=== PATIENT | female | born 1970 | race Caucasian/White ===

== ENCOUNTER → 2016-03-04 | Outpatient (CLI) | payer BC ==
[~2016-03-04] MED LIST: HYDROCODON-ACE1 EAC7 PO; NORCO 5-325 TA1 EACH PO; VITAMIN D1000 UNI1 PO
== END ==
LOC: CAT 10:24 → RAD 10:24
DX: M47.814 Spondylosis without myelopathy or radiculopathy, thoracic region (principal); M54.6 Pain in thoracic spine; J32.9 Chronic sinusitis, unspecified; R51 Headache

== ENCOUNTER → 2017-01-19 | Outpatient (CLI) | payer BC, OTHER | LOC: ULTRA 12:55 | DX: M79.604 Pain in right leg (principal); M79.89 Other specified soft tissue disorders ==

== ENCOUNTER → 2017-01-27 | Outpatient (CLI) | payer BC, OTHER | LOC: HYPER 06:45 | DX: T81.89XD Other complications of procedures, not elsewhere classified, subsequent encounter (principal); Z72.89 Other problems related to lifestyle; Y83.8 Other surgical procedures as the cause of abnormal reaction of the patient, or of later complication, without mention of misadventure at the time of the procedure ==

== ENCOUNTER → 2017-02-09 | Outpatient (CLI) | payer BC, OTHER | LOC: HYPER 07:10 | DX: T81.89XD Other complications of procedures, not elsewhere classified, subsequent encounter (principal); Z72.89 Other problems related to lifestyle; Y83.8 Other surgical procedures as the cause of abnormal reaction of the patient, or of later complication, without mention of misadventure at the time of the procedure ==

== ENCOUNTER → 2017-02-24 | Outpatient (CLI) | payer BC, OTHER ==
[~2017-02-24] MED LIST changes: +ASPIR 8181 MG PO; +CRESTOR10 MG PO; +DEPO-PROVE150 MG/11 IM; +IBUPROFEN 200200 M1 PO; +IMDUR 30 MG TAB30 M1 PO; +NITROGLYCERIN0.4 MG SUBLING; +PROTONIX40 M1 PO; +RIZATRIPTAN5 M1 PO; +TOPROL XL25 MG PO; +VITAMIN D5000 UNIT PO; +ZOLOFT50 MG PO
== END ==
LOC: HYPER 06:37
DX: T81.89XD Other complications of procedures, not elsewhere classified, subsequent encounter (principal); S80.811D Abrasion, right lower leg, subsequent encounter; Z72.89 Other problems related to lifestyle; X58.XXXD Exposure to other specified factors, subsequent encounter; Y83.8 Other surgical procedures as the cause of abnormal reaction of the patient, or of later complication, without mention of misadventure at the time of the procedure

== ENCOUNTER 2017-11-17 07:54 | Observation (INO) | payer BC, OTHER ==
[~2017-11-17] VITALS: Ht 162.6 cm; Wt 104.0 kg
--- NOTE | ~2017-11-17 | EKG ---
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 BERMEO : 1970 Requested By: Carlos Nicole Order Number: [id number] MD: Triston Flores Measurements Intervals [place] Rate: 68 P: 11 IN: 181 QRS: 28 QRSD: 91 T: 33 QT: 445 QTc: 474 Interpretive Statements Sinus rhythm ST elev, probable normal early repol pattern No previous ECG available for comparison Electronically Signed On 11-17-2017 17:16:53 CDT by Triston Flores [email or web address] <ELECTRONICALLY SIGNED> By: Triston Flores MD, [facility] 11/17/17 1716 1128 112 Triston Flores MD, [facility] /EPI
--- NOTE | ~2017-11-17 | CATHLAB ---
[facility] [address] [place] [address] INVASIVE PROCEDURE REPORT Name: LIZAELLIOTTCAIN Room #: 214-[facility]#: [id number] Admission: 11/17/17 Attend Phys: Carlos William Discharge: 11/18/17 Date of : 72 Date of Service: 11/18/17 1227 Report #: [id number] THIS REPORT FOR: //name// APPROVED REPORT Study performed: 11/17/2017 09:29:26 Patient Details Patient Status: Out-Patient Room #: The patient is a 47 year-old female Event Personnel Carlos Nicole Superintendent [employer], Tae Lezama Brown, Roberta Monitor, Amilcar Lynch RN Procedures Performed Art Access - R femoral artery* Left Heart Cath w/or w/o Coronaries [id number] [facility] 15794 Initial Mod Sed Same Phys/QHP Gr5y 560640 36460 Mod Sed Same Phys/QHP Ea 020701 Hemostasis w/ Mynx supervision of conscious sedation Indication Positive stress test, Chest pain Procedure Narrative The Right Groin^ was infiltrated with 1% Lidocaine subcutaneous anesthesia. A PINNACLE 4FR Sheath #[id number] sheath was inserted into the RFA^. Coronary angiography was performed using coronary diagnostic catheters. The right coronary system was accessed and visualized with a JR4 catheter. The left coronary system was accessed and visualized with a JL4 catheter. The left ventricle was accessed and visualized with a angled Pigtail catheter. Left ventricular/Aortic Valve gradient assessed via catheter pullback. Closure device was deployed with a 6 Fr MYNXGRIP 6/7F #[id number]. There was no hematoma. Intraoperative Conscious Sedation Sedation start time: 09:45 Case end Time: 11:00 Versed 4 mg Fluoro Time: 2585.00 minutes Dose: DAP 97459.80 cGycm2 2585 mGy Contrast Type and Amount: Omnipaque 125 ml [facility] [place] [address] INVASIVE PROCEDURE REPORT Name: CAIN VARNER Room #: 214-P [facility].#: [id number] Admission: 11/17/17 Attend Phys: Carlos William Discharge: 11/18/17 Date of : 72 Date of Service: 11/18/17 1227 Report #: [id number] Coronary Angiography The patient's coronary anatomy is right dominant. Diagnostic Cath Left Main Left main is of normal origin bifurcates left anterior descending left circumflex free of high-grade disease LAD Moderate caliber vessel which rapidly tapers to the apex is a type II vessel. No high-grade lesions are noted but the apex does taper dramatically and has luminal irregularities present Diagonal 1 Small-caliber vessel without significant obstructive lesions noted Circumflex Moderate caliber vessel which is quite tortuous proximally has a long segment of 50% stenosis with what may be slightly higher narrowing in its distal portion prior to continuation of the circumflex marginal branch. The circumflex proper then obtain as posteriorly as small-caliber vessel OM1 Moderate caliber vessel quite tortuous in nature with a moderate caliber lesion in this midportion. Right Coronary Large-caliber vessel normal origin proceeds in the AV groove giving rise to RV marginal branches and continues giving rise to posterior descending artery large posterior circulation which extends from the inferolateral wall to the apex as well as the apex R PDA Moderate caliber vessel without significant high-grade lesion Left Ventriculography Left Ventriculography was not performed. Hemodynamics The aortic pressure is 153/93 mmHg with a mean of 120 mmHg. The left ventricular pressure is 123/13 mmHg with a mean of mmHg. The left ventricular end diastolic pressure is 25 mmHg. PCI Technique Due to the moderate nature of the lesion and the absence of reversibility on perfusion scanning FFR was attempted. The wire was unable to be advanced to be on the distal portion of the long lesion and a 014 wire was then advanced. A 1.5 mm balloon was then placed distally and attempted advancement of the FFR wire failed to be successful. Wire control was then lost and a whisper wire was then attempted which was taken distally in the marginal branch. The lesion appeared to be somewhat hazy and it was decided to proceed with attempted stenting to see whether the device was able to navigate the 90 turns that are noted. This was unsuccessful even with the use of a whisper wire the patient chest discomfort occurred initially with the first injection of the catheterization resolved and she had [facility] [address] [place] [address] INVASIVE PROCEDURE REPORT Name: CAIN VARNER Room #: 214-P [facility].R.#: [id number] Admission: 11/17/17 Attend Phys: Carlos William Discharge: 11/18/17 Date of : 72 Date of Service: 11/18/177 Report #: [id number] recurrent symptoms but no ST segment changes that had been on the first episode. Small linear dissection that it did not appear to be flow-limiting or thrombus formation was noted. At this point in time the procedure was discontinued and at discussion for medical management was appropriate due to the tortuosity of the vessel itself. A remained hemodynamically and electrically stable throughout the case PCI Technique Lesion A LAUNCHER 6FR JL4 #[id number] Guide Catheter was used to engage the ostium. A Luge Wire (J) .014 X 182CM #[id number] Interventional Guidewire was used to cross the lesion. COMMENTS Aeris Pressure wire 175cm unable to cross lesion. 2.5mm x 22mm Resolute [place] OTW unable to cross lesion Conclusion 1. Coronary disease single vessel involving a month at least moderate mid circumflex lesion in a tortuous vessel 2. Abnormal with absent elevated left ventricle end-diastolic pressures 3. Development of chest discomfort and ST segment elevations with the first injection without evidence of any flow restriction which resolved with one sublingual nitroglycerin Recommendations Cardiac Risk Reduction Program Aggressive Medical Therapy Medications Administered Angiomax infusion and bolus <ELECTRONICALLY SIGNED> By: Carlos Nicole MD 11/18/17 1227 26 Carlos Nicole MD /INF
[~2017-11-17 07:54] MED LIST changes: -ASPIR 8181 MG PO; -CRESTOR10 MG PO; -DEPO-PROVE150 MG/11 IM; -IMDUR 30 MG TAB30 M1 PO; -NITROGLYCERIN0.4 MG SUBLING; -PROTONIX40 M1 PO; -RIZATRIPTAN5 M1 PO; -TOPROL XL25 MG PO; -VITAMIN D5000 UNIT PO
[2017-11-17 08:26] VITALS: BP 128/85
[2017-11-17] MEDS ORDERED: RIZATRIPTAN5 M1 PO (08:38)
[2017-11-17] MEDS ORDERED: DEPO-PROVE150 MG/11 IM (08:39)
[2017-11-17] MEDS ORDERED: VITAMIN D5000 UNIT PO (08:40)
[2017-11-17 12:15] VITALS: BP 143/93
[2017-11-17 16:30] VITALS: BP 115/73
[2017-11-17 19:53] VITALS: BP 111/69
[2017-11-18 00:16] VITALS: BP 117/77
[2017-11-18 03:36] VITALS: BP 121/75
[2017-11-18 03:48] LABS: HEMATOCRIT 40.6 % (37.0-47.0); HEMOGLOBIN 13.8 gm/dL (12.0-15.0); MCH 31.2 pg (26.0-34.0); MCV 91.8 fL (80.0-100.0); RBC 4.42 mil/uL (4.20-5.00); RDW 13.7 % (10.5-14.5)
[2017-11-18 03:55] LABS: CALCIUM 8.8 mg/dL (8.5-10.1); CREATININE 0.8 mg/dL (0.6-1.0); POTASSIUM 3.7 mmol/L (3.5-5.1)
[2017-11-18 07:59] VITALS: BP 123/83
[2017-11-18] MEDS ORDERED: ASPIR 8181 MG PO (09:18)
[2017-11-18] MEDS ORDERED: IMDUR 30 MG TAB30 M1 PO (09:18)
[2017-11-18] MEDS ORDERED: TOPROL XL25 MG PO (09:18)
[2017-11-18] MEDS ORDERED: PROTONIX40 M1 PO (09:18)
[2017-11-18] MEDS ORDERED: NITROGLYCERIN0.4 MG SUBLING (09:18)
[2017-11-18] MEDS ORDERED: CRESTOR10 MG PO (09:24)
[2017-11-18 10:20] VITALS: BP 123/83
== END 2017-11-18 10:58 | disposition home or self-care (01) ==
LOC: CATH 07:54 → 2N 10:44 → CATH 14:16 → 2N 11-18 10:58
PROVIDERS: Internal Medicine
DX: R07.9 Chest pain, unspecified (principal); R91.8 Other nonspecific abnormal finding of lung field; E78.5 Hyperlipidemia, unspecified; Z98.890 Other specified postprocedural states; Z90.49 Acquired absence of other specified parts of digestive tract; Z72.89 Other problems related to lifestyle

== ENCOUNTER → 2018-02-01 | Outpatient (CLI) | payer BC, OTHER ==
[~2018-02-01] MED LIST changes: +ASPIR 8181 MG PO; +CRESTOR10 MG PO; +DEPO-PROVE150 MG/11 IM; +IMDUR 30 MG TAB30 M1 PO; +NITROGLYCERIN0.4 MG SUBLING; +PROTONIX40 M1 PO; +RIZATRIPTAN5 M1 PO; +TOPROL XL25 MG PO; +VITAMIN D5000 UNIT PO
--- NOTE | ~2018-02-01 | HPC ---
[facility] [place] [address] PAIN MANAGEMENT CONSULTATION Name: CAIN VARNER Pavel [facility] [id number] Admission: 02/01/18 Attend Phys: Paramjit Flores DO Discharge: Date of : 72 Report #: [id number] THIS REPORT FOR: //name// CC: Paramjit Oswald MD DATE OF SERVICE: 02/01/2018 CHIEF COMPLAINT: Right low back pain. HISTORY OF PRESENT ILLNESS: As you know, the patient is a morbidly obese 47-year-old female with longstanding history of right chest wall pain for which the patient was referred to our clinic. She stated her pain began a month ago and progressively worsened. She has returned today in followup visit with now complaint of right low back and no chest wall pain. She is placing pain directly over her right lower back area, is not involved in the facet area. She is placing pain score 4/10. She denies injury or trauma to the area that might have caused symptom development. She returns today to discuss her concerns of this one specific area of pain directly above the iliac crest on the right side. ALLERGIES: No known drug allergies. CURRENT MEDICATIONS: Rizatriptan, Depo-Provera, cholecalciferol, metoprolol, isosorbide dinitrate, nitroglycerin, aspirin, pantoprazole, and lovastatin. SOCIAL HISTORY: The patient denies tobacco, alcohol, IV or illicit drug use. She is unaccompanied today. IMAGING: No new imaging available. PHYSICAL EXAMINATION: VITAL SIGNS: Blood pressure 140/85, pulse 78, respiratory rate 18 and unlabored. The patient is 96% on room air. Height 5 feet tall, weight 230 pounds, BMI calculated 39.5. GENERAL: Well-developed, well-nourished, well-hydrated, class 2, morbidly obese 47-year-old female, appearing stated age, placing current pain score at approximately 4/10. HEENT: Normocephalic, atraumatic. Pupils equal, round, reactive to light. EXTREMITIES: Show no clubbing, no cyanosis, no edema. MUSCULOSKELETAL: There is one discrete trigger point noted over the top of the iliac crest on the right. This is not underlined by any facet joints or osseous structures. Deep palpation of the area causes intensification of pain. ASSESSMENT: 1. Myofascial pain. [address] [address] PAIN MANAGEMENT CONSULTATION Name: CAIN VARNER Pavel [id number] Admission: 02/01/18 Attend Phys: Paramjit Flores DO Discharge: Date of : 72 Report #: [id number] 2. Right low back pain. PLAN: 1. The patient has returned today in followup visit, denying any chest wall pain at today's visit. She is easily locating pain directly over the iliac crest on the right side. This is located approximately 7-8 cm lateral to the spinous process at L4 and L5, pain is not overlying an osseous structure. This appears to be myofascial in origin. Deep palpation of the area causes patient's typical pain. She returns today to address this issue. After reviewing the risks and benefits of treatment options for trigger points, the patient chose to undergo trigger point injection in hopes of improving pain. She did not wish to be involved in physical therapy, stretching exercises, core strengthening and concerted effort at weight loss. She has been consented to undergo the trigger point injection today. She has been advised the risks and benefits, states she understood and wished to proceed. 2. No medication changes made at today's visit. The patient will continue current medical therapy as prior prescribed. 3. We will see the patient back in followup visit on an as needed basis. At discharge today, the patient's pain went from 4/10 to 0/10. By: 1612 38 Paramjit Flores, /nt
--- NOTE | ~2018-02-01 | P ---
[facility] [place] [address] [place] [address] PROCEDURE REPORT Name: ILZAELLIOTTCAIN [facility] [id number] Admission: 02/01/18 Attend Phys: Paramjit Flores DO Discharge: Date of : 72 Report #: [id number] THIS REPORT FOR: //name// CC: Paramjit Oswald MD DATE OF SERVICE: 02/01/2018 PROCEDURE: Trigger point injection. DESCRIPTION OF PROCEDURE: After obtaining written consent, the patient was placed in a seated position. By palpating using a single finger, one specific trigger point was identified in the paraspinal musculature of the right low back. The area was then marked with a skin marker. The area was then prepped with chlorhexidine. The area overlying the injection site was then anesthetized with 1 mL of 1% lidocaine using a 27-gauge 1-1/4-inch needle. A 25-gauge 2-inch needle was then advanced towards the trigger point. The needle was advanced until causing the patient's typical radiating pain pattern. After negative aspiration for heme, 4 mL of a solution containing 1 mL 40 mg per mL, 40 mg total triamcinolone and 3 mL bupivacaine 0.5% injected slowly. Needle was retracted alf, flushed with 1 mL of 1% lidocaine and removed. The patient was able to move all 4 extremities after procedure. The patient tolerated procedure well, carefully escorted to the recovery room in stable condition. No apparent complications. After meeting discharge criteria, the patient was discharged home with pain level 0/10 reduced from 4/10. By: 1612 [id number] Paramjit Flores DO /nt
[2018-02-01 09:44] VITALS: BP 140/85
== END | disposition home or self-care (01) ==
LOC: PAIN 09:21
DX: M79.18 Myalgia, other site (principal); M54.5 Low back pain; E66.01 Morbid (severe) obesity due to excess calories; Z79.899 Other long term (current) drug therapy; Z79.82 Long term (current) use of aspirin; Z68.39 Body mass index [BMI] 39.0-39.9, adult

== ENCOUNTER → 2018-03-10 | Outpatient (CLI) | payer BC, OTHER | LOC: ULTRA 16:05 | DX: E04.1 Nontoxic single thyroid nodule (principal) ==

== ENCOUNTER → 2018-09-13 | Outpatient (CLI) | payer BC, OTHER ==
[~2018-09-13] VITALS: Ht 162.6 cm; Wt 106.3 kg
[~2018-09-13] MED LIST changes: +BYSTOLIC 5 MG5 M1 PO
--- NOTE | ~2018-09-13 | HPC ---
[facility] [place] [address] [place] [address] PAIN MANAGEMENT CONSULTATION Name: CAIN VARNER [facility] [id number] Admission: 09/13/18 ������������������ Attend Phys: Paramjit Flores DO Discharge: ������������������ Date of : 72 Report #: [id number] THIS REPORT FOR: //name// CC: Paramjit Oswald MD DATE OF SERVICE: 09/13/2018 CHIEF COMPLAINT: Myofascial pain located over the right low back. HISTORY OF PRESENT ILLNESS: As you know, the patient is a morbidly obese 48-year-old female with longstanding history of right low back pain, diagnosed as myofascial pain. She underwent trigger point injections at our visit of 02/01/2018 with good and prolonged benefit. She returns today in followup visit reporting pain score 3/10. She reports greater than 70% improvement in overall pain with those injections until just recently where her symptoms began to return. She returns today requesting next in the series of trigger point injections to address recurrent myofascial symptoms. She denies injury or trauma that may have led to symptom reoccurrence. ALLERGIES: No known drug allergies. CURRENT MEDICATIONS, Bystolic 5 mg once a day, rosuvastatin 10 mg per day, aspirin 81 mg per day, Depo-Provera 150 mg intramuscular per month. SOCIAL HISTORY: The patient denies tobacco. Denies IV or illicit drug use. Admits to an occasional alcohol beverage. She is unaccompanied at today's visit. IMAGING: There is no new imaging available. PHYSICAL EXAMINATION: VITAL SIGNS: Blood pressure 152/98, pulse 54, respiratory rate 16 and unlabored. The patient is 97% on room air. Height 5 feet 4 inches tall, weight 234.4 pounds, BMI calculated 40.2. GENERAL: Well-developed, well-nourished, well-hydrated, class 3 morbidly obese, 48-year-old female, appearing stated age. Pain is rated today at 3/10. HEENT: Normocephalic, atraumatic. Pupils equal, round, reactive to light. Extraocular muscles are intact. EXTREMITIES: Show no clubbing, no cyanosis, no edema. ABDOMEN: Soft, nontender, gibbous in its formation. MUSCULOSKELETAL: There are multiple discrete trigger points identified within the lumbar region, 8 different trigger points were identified. Multiple tender points. [address] [address] PAIN MANAGEMENT CONSULTATION Name: CAIN VARNER Room #: REG [facility]#: [id number] Admission: 09/13/18 ������������������ Attend Phys: Paramjit Flores DO Discharge: ������������������ Date of : 72 Report #: [id number] ASSESSMENT: 1. Myofascial pain. 2. Chronic right low back pain. PLAN: 1. The patient returns today in followup visit having noted excellent benefit 70% improvement by patient's report with trigger point injections provided in January. Unfortunately, her symptoms have begun to return without inciting injury or trauma. She returns today per the request of her PCP to undergo next in the series of trigger point injections. She denies any changes in medical history since our last visit. She continues on her typical medications. The patient was advised risks and benefits of a trigger point injection series. These risks include but are not necessarily limited to bleeding, bruising, infection, worsening of pain, no relief of pain, temporary or permanent muscle weakness, temporary or permanent nerve damage, possible pneumothorax and . The patient states understood and wished to proceed. 2. The patient's blood pressure elevated today to 152/98, previous blood pressure 140/85. I have advised the patient to adjust her diet, removing any potential additional salt to reduce her blood pressure, also discussed possibility of having the patient return to see her PCP to make further adjustments in her antihypertensive agents. She was elevated at both visits and could use an adjustment in her medication. She will follow up with Dr. Oswald to make that adjustment. She is denying any vision changes, increased headache or any potential end-organ damage due to her hypertension. 3. We will see the patient back in followup visit on an as needed basis for possible next in a series of trigger point injections. PROCEDURE NOTE DESCRIPTION OF PROCEDURE: Trigger point injections. After obtaining written consent, the patient was placed in a seated position. By palpating using a single finger, 8 trigger points were identified in the paraspinal musculature of the right lower back. The area was marked with sterile marker and then prepped and draped with chlorhexidine. The area overlying the injection site was anesthetized with 1 mL of 1% lidocaine using a 27-gauge 1-1/4 inch needle. A 25-gauge 2-inch needle was advanced towards each trigger point. Needle was advanced until causing the patient's typical radiating pain pattern. After negative aspiration for heme, 1 mL of a solution containing 1 mL, 40 mg per mL, 40 mg total triamcinolone and 7 mL bupivacaine 0.5% injected slowly in a fanned out distribution. Needle was then retracted and flushed with 1 mL of 1% [facility] [address] [place] [address] PAIN MANAGEMENT CONSULTATION Name: CAIN VARNER Room #: REG [facility]#: [id number] Admission: 09/13/18 ������������������ Attend Phys: Paramjit Flores DO Discharge: ������������������ Date of : 72 Report #: [id number] lidocaine and removed. Sterile bandage placed over each of the 8 injection points. The patient tolerated procedure well, carefully escorted to the recovery room in stable condition. No apparent complications. After meeting discharge criteria, the patient discharged home. ��������������������������������������������� ���������������������������������������� By: ��������������������������������������������� 1232 0157 Paramjit Flores DO /nt
[2018-09-13 09:28] VITALS: BP 152/98
--- NOTE | 2018-09-13 09:42 | NUR ---
Pain Clinic Assessment: 1. History of Osteoarthritis: Not Applicable History of Rheumatoid Arthritis: Not Applicable 2. Height: 5 ft. 4 in. 162.6 cm. Weight: 234.4 lb. oz. 106.323 kg. Patient's BMI: 40.2 3. Vital Signs: BP: 152/98 Pulse: 54 Resp: 16 Temp: 02 Sat: 97 ECG Mon: 4. Pain Intensity: 3 5. Fall Risk: Dizziness: N Needs help standing or walking: N Fallen in the last 3 months: N Fall risk comments: 6. Patient on Blood Thinner: None 7. History of Hypertension: N 8. Opioid Therapy greater than 6 weeks: N Opiate Contract Signed: 9. Risk Assessment Tool Provided: 0-LOW 10. Functional Assessment Tool: 11. Recreational Drug Use: Never Drug Type: Tobacco Use: Never Smoker Tobacco Type: Amount or Packs/day: How Many Years: Alcohol Use: Yes Frequency: Weekly Quant: 5-6 A WEEK
== END | disposition home or self-care (01) ==
LOC: PAIN 09-07 07:16
DX: M79.18 Myalgia, other site (principal); M54.5 Low back pain; G89.29 Other chronic pain; E66.01 Morbid (severe) obesity due to excess calories; Z79.82 Long term (current) use of aspirin; Z79.899 Other long term (current) drug therapy; Z98.890 Other specified postprocedural states; Z68.41 Body mass index [BMI] 40.0-44.9, adult

== ENCOUNTER → 2018-12-28 | Outpatient (CLI) | payer BC, OTHER ==
[~2018-12-28] VITALS: Ht 162.6 cm; Wt 106.5 kg
[~2018-12-28] MED LIST changes: +METOPROLOL SUCC25 M1 PO
--- NOTE | ~2018-12-28 | HPC ---
[facility] [place] [address] PAIN MANAGEMENT CONSULTATION Name: CAIN VARNER Pavel Room #: REG [facility]#: [id number] Admission: 12/28/18 Attend Phys: Paramjit Flores DO Discharge: Date of : 72 Report #: [id number] THIS REPORT FOR: //name// CC: Paramjit Oswald MD DATE OF SERVICE: 12/28/2018 CHIEF COMPLAINT: Myofascial pain. HISTORY OF PRESENT ILLNESS: As you know, the patient is a morbidly obese 48-year-old female with longstanding history of right low back pain, diagnosed with myofascial symptoms. She underwent trigger point injections at various times with good efficacy. The most recent trigger points were provided 09/13/2018, where she reported 100% improvement in overall pain lasting for nearly 4 months. She returns today in followup visit with a pain level of 8/10 requesting to undergo next in the series of trigger point injections. She denies injury or trauma that may have led to symptom reoccurrence. ALLERGIES: No known drug allergies. CURRENT MEDICATIONS: Metoprolol 25 mg once a day, lovastatin 10 mg once a day, aspirin 81 mg per day and Depo-Provera 150 mg intramuscular per month. SOCIAL HISTORY: The patient denies tobacco, denies IV or illicit drug use. Admits to an occasional alcoholic beverage. She is unaccompanied at today's visit. IMAGING: No new imaging available. PHYSICAL EXAMINATION: VITAL SIGNS: Blood pressure 130/79, pulse 70, respiratory rate 16 and unlabored. The patient is 100% on room air. Height 5 feet 4 inches tall, weight 234.8 pounds, BMI calculated 40.3. GENERAL: Well-developed, well-nourished, well-hydrated, class 3, morbidly obese 48-year-old female appearing her stated age, pain is rated around 8/10. HEENT: Normocephalic, atraumatic. Pupils equal, round, reactive to light. EXTREMITIES: Show no clubbing, no cyanosis, no edema. MUSCULOSKELETAL: There is discrete palpatory tenderness over the paraspinal musculature of the right lower lumbar region. There are 8 different identifiable trigger points noted today. There are multiple tender points, though these do not have the typical radiating pain pattern. Seated straight leg raising negative. Supine straight leg raising negative. ASSESSMENT: [address] [address] PAIN MANAGEMENT CONSULTATION Name: CAIN VARNER [facility] [id number] Admission: 12/28/18 Attend Phys: Paramjit Flores DO Discharge: Date of : 72 Report #: [id number] 1. Myofascial pain. 2. Chronic right low back pain. PLAN: 1. The patient returns today in followup visit having noted excellent benefit with previous trigger point injections with 100% improvement in overall pain lasting for nearly 4 months. She returns today in followup visit requesting to undergo next in the series of trigger point injections to address the 8 trigger points that have been noted today. She has been advised risks and benefits of the procedure, states understood, and wished to proceed. 2. No medication changes made at today's visit. The patient will continue current medical therapy. 3. We will see the patient back in followup visit on an as needed basis for possible next in a series of trigger point injections. PROCEDURE NOTE DESCRIPTION OF PROCEDURE: Trigger point injections. After obtaining written consent, the patient was placed in a seated position. By palpating using a single finger, 8 trigger points were identified in the paraspinal musculature of the right lower lumbar spine within the longissimus semispinalis and the iliocostalis muscles. The area of each of the trigger points were marked with a sterile marker and prepped and draped in aseptic fashion using chlorhexidine. A 25-gauge 2-inch needle was advanced towards each trigger point. Needle was advanced until causing the patient's typical radiating pain pattern. After negative aspiration for heme, 1 mL of a solution containing 1 mL, 40 mg per mL, 40 mg total triamcinolone and 7 mL of bupivacaine 0.5% injected slowly in a fanned out distribution. Needle was retracted and flushed with 1 mL of 1% lidocaine at each site and then ultimately removed. Sterile bandage placed over injection site. The patient tolerated procedure well, carefully escorted to recovery room in stable condition. No apparent complications. After meeting discharge criteria, the patient discharged to home. By: [id number] Paramjit Flores DO /nt
[2018-12-28 10:57] VITALS: BP 130/79
--- NOTE | 2018-12-28 11:12 | NUR ---
Pain Clinic Assessment: 1. History of Osteoarthritis: Right Lower Extremity Left Lower Extremity History of Rheumatoid Arthritis: Not Applicable 2. Height: 5 ft. 4 in. 162.6 cm. Weight: 234.8 lb. oz. 106.505 kg. Patient's BMI: 40.3 3. Vital Signs: BP: 130/79 Pulse: 70 Resp: 16 Temp: 02 Sat: 100 ECG Mon: 4. Pain Intensity: 8 5. Fall Risk: Dizziness: N Needs help standing or walking: N Fallen in the last 3 months: N Fall risk comments: 6. Patient on Blood Thinner: None 7. History of Hypertension: N 8. Opioid Therapy greater than 6 weeks: N Opiate Contract Signed: 9. Risk Assessment Tool Provided: 0-LOW 10. Functional Assessment Tool: 11. Recreational Drug Use: Never Drug Type: Tobacco Use: Never Smoker Tobacco Type: Amount or Packs/day: How Many Years: Alcohol Use: Yes Frequency: Monthly Quant: 1-2
== END | disposition home or self-care (01) ==
LOC: PAIN 12-27 10:33
DX: M79.18 Myalgia, other site (principal); M54.5 Low back pain; G89.29 Other chronic pain; E66.01 Morbid (severe) obesity due to excess calories; Z79.82 Long term (current) use of aspirin; Z79.899 Other long term (current) drug therapy; Z98.890 Other specified postprocedural states; Z68.41 Body mass index [BMI] 40.0-44.9, adult

== ENCOUNTER → 2019-01-31 | Outpatient (CLI) | payer BC, OTHER | LOC: ULTRA 12:40 | DX: R59.0 Localized enlarged lymph nodes (principal) ==

== ENCOUNTER 2019-03-01 06:00 | Emergency (ER) | payer BC, OTHER ==
[~2019-03-01] VITALS: Ht 162.6 cm; Wt 93.0 kg
[2019-03-01 06:39] LABS: ABSOLUTE NEUTROPHILS 2.4 thou/uL (1.4-8.2); BASOPHILS 0.9 % (0.0-2.0); HEMATOCRIT 38.6 % (37.0-47.0); HEMOGLOBIN 12.7 gm/dL (12.0-15.0); LYMPHOCYTES 23.1 % (24.0-44.0); MCH 31.3 pg (26.0-34.0); MCHC 32.9 g/dL (28.0-37.0); MONOCYTES 6.6 % (1.0-8.0); PLATELET COUNT 214 thou/uL (150-400); POLYS 66.4 % (36.0-66.0); RBC 4.06 mil/uL (4.20-5.00); RDW 15.7 % (10.5-14.5); WBC 3.6 thou/uL (4.0-11.0)
[2019-03-01 06:51] LABS: CALCIUM 9.5 mg/dL (8.5-10.1); CREATININE 0.9 mg/dL (0.6-1.0); POTASSIUM 3.7 mmol/L (3.5-5.1)
[2019-03-01 06:52] LABS: URINE BILIRUBIN NEGATIVE (Negative); URINE BLOOD NEGATIVE (Negative); URINE COLOR YELLOW; URINE GLUCOSE-RANDOM* NEGATIVE (Negative); URINE KETONES NEGATIVE (Negative); URINE LEUKOCYTES-REFLEX TRACE (Negative); URINE PROTEIN (DIPSTICK) NEGATIVE (Negative); URINE SPECIFIC GRAVITY 1.025 (1.005-1.035); URINE UROBILINOGEN 0.2 E.U./dl (0.2-1.0)
[2019-03-01 06:53] LABS: URINE NITRITE-REFLEX POSITIVE (Negative)
[2019-03-01 06:54] LABS: URINE CLARITY SL HAZY
[2019-03-01 06:58] LABS: TOTAL BILIRUBIN 0.7 mg/dL (<0.1-1.0); TOTAL PROTEIN 6.9 g/dL (6.4-8.2)
[2019-03-01 07:07] LABS: CASTS None Seen /LPF (None Seen); MUCUS 4-6 Moderate strn/LPF (None Seen); SQUAMOUS >10 Many /LPF (0-3)
[2019-03-01 07:08] LABS: BACTERIA-REFLEX 1-9 Few /HPF (None Seen); CRYSTALS None Seen /LPF (None Seen); URINE RBC None Seen /HPF (0-2); URINE WBC-REFLEX 0-5 Rare /HPF (0-5)
[2019-03-01] MEDS ORDERED: ZOFRAN ODT4 MG PO (08:50)
[2019-03-01] MEDS ORDERED: MIRALAX119 GM PO (08:50)
[2019-03-01] MEDS ORDERED: OMEPRAZOLE20 M1 PO (08:50)
[2019-03-01] MEDS ORDERED: NORCO 5-325 TA1 EAC1 PO (08:50)
[2019-03-01] MEDS ORDERED: CARAFATE 1 GM TA1 G1 PO (08:50)
[2019-03-01 09:10] VITALS: BP 132/78
--- NOTE | 2019-03-02 17:14 | EKG ---
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
== END 2019-03-01 09:12 | disposition home or self-care (01) ==
LOC: ER 06:00
PROVIDERS: Emergency Medicine
DX: K29.00 Acute gastritis without bleeding (principal); R11.2 Nausea with vomiting, unspecified; E78.5 Hyperlipidemia, unspecified; Z98.890 Other specified postprocedural states; Z90.49 Acquired absence of other specified parts of digestive tract

== ENCOUNTER → 2019-04-04 | Outpatient (CLI) | payer BC, OTHER ==
[~2019-04-04] VITALS: Ht 162.6 cm; Wt 106.1 kg
[~2019-04-04] MED LIST changes: +CARAFATE 1 GM TA1 G1 PO; +MIRALAX119 GM PO; +NORCO 5-325 TA1 EAC1 PO; +OMEPRAZOLE20 M1 PO; +ZOFRAN ODT4 MG PO
[2019-04-04 10:20] VITALS: BP 136/95
--- NOTE | 2019-04-04 10:32 | NUR ---
Pain Clinic Assessment: 1. History of Osteoarthritis: Right Lower Extremity Left Lower Extremity History of Rheumatoid Arthritis: Not Applicable 2. Height: 5 ft. 4 in. 162.6 cm. Weight: 233.8 lb. oz. 106.051 kg. Patient's BMI: 40.1 3. Vital Signs: BP: 136/95 Pulse: 74 Resp: 16 Temp: 02 Sat: 99 ECG Mon: 4. Pain Intensity: 7 5. Fall Risk: Dizziness: N Needs help standing or walking: N Fallen in the last 3 months: N Fall risk comments: 6. Patient on Blood Thinner: None 7. History of Hypertension: N 8. Opioid Therapy greater than 6 weeks: N Opiate Contract Signed: 9. Risk Assessment Tool Provided: LOW RISK 0/3 10. Functional Assessment Tool: 11. Recreational Drug Use: Never Drug Type: Tobacco Use: Never Smoker Tobacco Type: Amount or Packs/day: How Many Years: Alcohol Use: Yes Frequency: Weekly Quant: 3-5
--- NOTE | 2019-04-11 07:45 | HPC ---
[facility] [place] [address] PAIN MANAGEMENT CONSULTATION Name: CAIN VARNER Pavel Room #: REG [facility]mata#: [id number] Admission: 04/04/19 Attend Phys: Paramjit Flores DO Discharge: Date of : 72 Report #: [id number] THIS REPORT FOR: cc: [place] Oswald MD, Neal A. MD Johnson, James E. DO ~ THIS REPORT FOR: //name// DATE OF SERVICE: 04/04/2019 CHIEF COMPLAINT: Myofascial pain. HISTORY OF PRESENT ILLNESS: As you know, the patient is a morbidly obese 48-year-old female with longstanding history of right low back pain, diagnosed with myofascial symptoms. She has undergone trigger point injections in the past with good efficacy. She has undergone 3 series of injections since 02/01/2018 with good effect. The patient has made multiple appointments, but has missed appointment on 08/21/2018, 02/01/2019, 12/27/2018, 09/10/2018, 09/06/2018, 06/22/2018, and 02/22/2018. The patient indicates that she has had difficulty with car, unable to leave her garage, having sick children and various other late cancellations. She returns today in followup visit having attempted to cancel her appointment this morning due to issues with a hotel housekeeper. She was advised if she did not keep this appointment given her extensive history of late cancellations and no shows that she would no longer be seen if she did not show today's appointment. She does shows today to undergo trigger point injections with pain level of 7/10. She denies injury or trauma that may have led to symptom reoccurrence. ALLERGIES: No known drug allergies. CURRENT MEDICATIONS: MiraLax, metoprolol, atorvastatin, aspirin, Depo-Provera. SOCIAL HISTORY: The patient denies tobacco, denies IV or illicit drug use. Admits to occasional alcohol beverage. She is unaccompanied today. IMAGING: No new imaging available. PHYSICAL EXAMINATION: VITAL SIGNS: Blood pressure 136/95, pulse 74, respiratory rate 16 and unlabored. The patient is 99% on room air. Height 5 feet 4 inches tall, weight 233.8 pounds and BMI calculated 40.1. GENERAL: Well-developed, well-nourished, well-hydrated, class 3, morbidly obese 48-year-old female appearing stated age, pain is rated today 7/10. HEENT: Normocephalic, atraumatic. Pupils equal, round, reactive to light. [address] [address] PAIN MANAGEMENT CONSULTATION Name: CAIN VARNER [facility] #: [facility] [id number] Admission: 04/04/19 Attend Phys: Paramjit Flores DO Discharge: Date of : 72 Report #: [id number] NEUROLOGIC: Speech fluent. The patient deemed a fair historian. EXTREMITIES: Show no clubbing, no cyanosis, no edema. MUSCULOSKELETAL: Upper and lower extremity strength equal and symmetrical, though deconditioned bilaterally. The patient has some palpatory tenderness over the paraspinal musculature of the right lower thoracic and upper lumbar area. I have been able to identify 8 different identifiable trigger points that do radiation causes the patient's typical pain. Multiple tender points. Seated straight leg raising negative. Supine straight leg raising negative. Doris's test is negative. Modified Gaenslen's positive for axial low back pain. ASSESSMENT: 1. Myofascial pain. 2. Chronic right low back pain. PLAN: 1. The patient returns today in followup visit to undergo trigger point injections. She notes good efficacy with previous trigger point injections, providing up to 100% improvement in overall pain lasting for 3 months. Unfortunately, her symptoms have begun to return. She returns today in followup visit to undergo trigger point injections to address these 8 specific trigger points in the right lower thoracic upper lumbar area. The patient has been advised risks and benefits of the procedure, states understood and wished to proceed. 2. The patient and I did discuss her late cancellations and no shows over the past year. She has been advised that she must keep all future appointments. We have accommodated the patient over the past year, but can no longer afford to have the patient make appointments and not show up as this is costing the clinic and the hospital significant amount of money. This also limits the capabilities of our services to accommodate other patients who have similar chronic pain issues. The patient was made aware of our concern today. She states that any future appointment she will make. 3. No medication changes made at today's visit. The patient will continue current medical therapy as previously prescribed. 4. We will see the patient back in followup visit on an as needed basis. PROCEDURE NOTE DESCRIPTION OF PROCEDURE: Trigger point injection. After obtaining written consent, the patient was placed in a seated position. By palpating using a single finger, 8 trigger points were identified within the paraspinal musculature of the lower thoracic and upper lumbar area within the longissimus muscles, semispinalis muscle and the iliocostalis muscle on the right. Each of the trigger point areas were marked with sterile marker, then prepped and draped in aseptic fashion using chlorhexidine. [address] [address] PAIN MANAGEMENT CONSULTATION Name: CAIN VARNER Room #: REG [facility]#: [id number] Admission: 04/04/19 Attend Phys: Paramjit Flores DO Discharge: Date of : 72 Report #: [id number] A 25-gauge 2-inch needle was advanced towards each of the trigger points. Needle was advanced until typical radiating pain pattern was reproduced. After negative aspiration for heme, 1 mL of a solution containing 1 mL, 40 mg per mL, 40 mg total of triamcinolone and 7 mL of bupivacaine 0.5% injected in a fanned out distribution at each site. Needle was retracted and flushed with 1 mL of 1% lidocaine, then removed. Sterile bandage was placed over each of the injection sites. The patient tolerated procedure well, carefully escorted to recovery room in stable condition. No apparent complications. After meeting discharge criteria, the patient discharged home. <ELECTRONICALLY SIGNED> By: Paramjit Flores DO 04/11/19 0745 [id number] Paramjit Flores DO /nt
== END | disposition home or self-care (01) ==
LOC: PAIN 03-21 10:06
DX: M79.18 Myalgia, other site (principal); M54.5 Low back pain; G89.29 Other chronic pain; Z98.890 Other specified postprocedural states; Z79.899 Other long term (current) drug therapy; Z79.82 Long term (current) use of aspirin

== ENCOUNTER → 2019-07-05 | Outpatient (CLI) | payer BC, OTHER ==
[~2019-07-05] VITALS: Ht 162.6 cm; Wt 102.5 kg
[~2019-07-05] MED LIST changes: +NAPROSYN500 MG PO
--- NOTE | ~2019-07-05 | HPC ---
[facility] [address] [place] [address] PAIN MANAGEMENT CONSULTATION Name: CAIN VARNER Room #: REG [facility] HinojosaJimenez#: [id number] Admission: 07/05/19 Attend Phys: Paramjit Flores DO Discharge: Date of : 72 Report #: [id number] THIS REPORT FOR: cc: [place] Oswald MD,Paramjit Martino MD, DO ~ CC: Paramjit Oswald MD DATE OF SERVICE: 07/05/2019 REFERRING PHYSICIAN: [place] Oswald MD CHIEF COMPLAINT: Myofascial pain. HISTORY OF PRESENT ILLNESS: As you know, the patient is morbidly obese 49-year-old female with longstanding history of low back pain mainly located in the right side, diagnosed with myofascial symptoms. She has undergone trigger point injections with good efficacy. Most recent trigger point injections given on 04/04/2019 gave reportedly 80% improvement in overall pain lasting for 2 months. She returns today in followup visit in a Cam boot on the left leg due to a spontaneous stress fracture. She denies injury or trauma that may have led to this issue. She believes that the change in her gait having to offload weight on the left foot has led to recurrence of pain. She returns today in followup visit with pain level of 6/10. She has returned in followup visit to discuss treatment options. ALLERGIES: No known drug allergies. CURRENT MEDICATIONS: MiraLax, metoprolol, atorvastatin, aspirin, and Depo-Provera. SOCIAL HISTORY: The patient denies tobacco, denies IV or illicit drug use. Admits to occasional alcohol beverage. She is unaccompanied at today's visit. IMAGING: No new imaging available. PHYSICAL EXAMINATION: VITAL SIGNS: Blood pressure 121/75, pulse is 88, respiratory rate 14 and unlabored. The patient is 98% on room air. Height 5 feet 8 inches tall, weight 226 pounds, BMI calculated 38.8. GENERAL: Well-developed, well-nourished, well-hydrated exogenously obese 49-year-old female appearing stated age, pain is rated today 6/10. HEENT: Normocephalic, atraumatic. Pupils equal, round, reactive. Speech is fluent for patient. [address] [address] PAIN MANAGEMENT CONSULTATION Name: GARDENIACAIN [facility] #: [facility] [id number] Admission: 07/05/19 Attend Phys: Paramjit Flores DO Discharge: Date of : 72 Report #: [id number] EXTREMITIES: Show no clubbing, no cyanosis, no edema. MUSCULOSKELETAL: Upper and lower extremity strength appeared equal and symmetrical. There is deconditioning noted again bilaterally, but muscle bulk and tone is symmetrical. There is palpatory tenderness over the paraspinal musculature of the lower thoracic upper lumbar area both on the left and right side consistent with myofascial symptoms. There are multiple tender points, but no specific trigger points. Straight leg raising both in the seated and supine position are negative. Modified Gaenslen's is positive only for some axial back pain, no radiation of symptoms. Ankle clonus negative. Babinski is negative. ASSESSMENT: 1. Myofascial pain. 2. Class 2 morbid obesity. 3. Chronic low back pain. PLAN: 1. The patient has returned today in followup visit reporting a pain score of 6/10. She returns requesting the possibility of undergoing trigger point injections. She does note good benefit with trigger point injections lasting for up to 2 months at a time. She states that her pain has returned to a level of intolerability, returning today to discuss the options for treatment. She is now experiencing pain across the whole of the lower thoracic and lower lumbar area. She has multiple tender points, no specific trigger points. We did discuss the possibility of undergoing trigger point injections as she has seen improvement in the past, though given the wide distribution of symptoms, it may be difficult to address each and every one of these tender points specifically. We discussed this with the patient today. Prior to the conversation in regards to the use of trigger point injections for the procedure, we discussed exercise program and weight loss. 2. The patient and I did discuss at length today her need to begin a wellness program involving not only physical therapy, core strengthening, but also to engage in some cardiovascular activities. We have also discussed the need for her to lose some of the weight that she has currently obtained as this is contributing significantly to her symptoms. We were very careful on how we discussed her weight issues with her today describing how they were affecting her chronic axial back pain and how they are contributing to symptoms that will progressively worsen if she is unwilling to participate in exercise and weight loss programs. The patient seemed somewhat upset by this conversation today. She decided she wishes to discuss her case further with her primary care physician. I did offer once again trigger point injections, but advised her that they would be suboptimal in their relief of symptoms if we did not address the underlying problem of her weight and her lack of core strengthening. Without these 2 elements, trigger point injections will only provide transient improvement in symptoms and will not be something that can be sustained for long-term as the trigger points will ultimately lose efficacy if the underlying problem is not addressed. The patient wishes to discuss this further with her [address] [place] [address] PAIN MANAGEMENT CONSULTATION Name: CAIN VARNER Room #: REG NATEGust[facility] Ham#: [id number] Admission: 07/05/19 Attend Phys: Paramjit Flores DO Discharge: Date of : 72 Report #: [id number] primary care physician, Dr. [place] Oswald, before moving forward with any treatment. 3. Prior to the patient leaving today, we once again offered the opportunity to undergo trigger point injections as she does see improvement and I do think that in the acute phase of treatment this would be beneficial. She wishes to discuss her case with Dr. Oswald in regards to exercise program and weight loss programs that might be available to her. 4. No medication changes made at today's visit. The patient will continue current medical therapy as previously prescribed. 5. We will see the patient back in followup visit on an as needed basis. By: [id number] Paramjit Flores DO /nt
[2019-07-05 13:36] VITALS: BP 121/75
--- NOTE | 2019-07-05 13:37 | NUR ---
Pain Clinic Assessment: 1. History of Osteoarthritis: Right Lower Extremity Left Lower Extremity History of Rheumatoid Arthritis: DENIES 2. Height: 5 ft. 4 in. 162.6 cm. Weight: 226.0 lb. oz. 102.513 kg. Patient's BMI: 38.8 3. Vital Signs: BP: 121/75 Pulse: 88 Resp: 14 Temp: 02 Sat: 98 ECG Mon: 4. Pain Intensity: 6 5. Fall Risk: Dizziness: N Needs help standing or walking: N Fallen in the last 3 months: N Fall risk comments: 6. Patient on Blood Thinner: None 7. History of Hypertension: N 8. Opioid Therapy greater than 6 weeks: N Opiate Contract Signed: 9. Risk Assessment Tool Provided: LOW RISK 0/3 10. Functional Assessment Tool: 11. Recreational Drug Use: Never Drug Type: Tobacco Use: Never Smoker Tobacco Type: Amount or Packs/day: How Many Years: Alcohol Use: Yes Frequency: Weekly Quant: SOCIAL
== END ==
LOC: PAIN 02-01 11:35
DX: M79.10 Myalgia, unspecified site (principal); E66.01 Morbid (severe) obesity due to excess calories; G89.29 Other chronic pain; Z79.891 Long term (current) use of opiate analgesic

== ENCOUNTER → 2019-08-03 | Outpatient (CLI) | payer BC, OTHER | LOC: NUC 07-26 07:56 | PROVIDERS: ATTEND Orthopaedic Surgery Foot and Ankle Surgery | DX: M84.375A Stress fracture, left foot, initial encounter for fracture (principal); X58.XXXA Exposure to other specified factors, initial encounter; Y93.89 Activity, other specified; Y92.89 Other specified places as the place of occurrence of the external cause; Y99.8 Other external cause status ==

== ENCOUNTER → 2019-12-28 | Outpatient (CLI) | payer BC, OTHER | LOC: LAB 12:21 | PROVIDERS: ATTEND Nurse Practitioner | DX: Z20.828 Contact with and (suspected) exposure to other viral communicable diseases (principal) ==

== ENCOUNTER → 2020-02-07 | Outpatient (CLI) | payer BC, OTHER | LOC: LAB 11:09 | PROVIDERS: ATTEND Nurse Practitioner | DX: R05 Cough (principal); R50.9 Fever, unspecified; Z20.828 Contact with and (suspected) exposure to other viral communicable diseases ==

== ENCOUNTER → 2020-03-13 | Outpatient (CLI) | payer BC, OTHER | LOC: LAB 08:52 | PROVIDERS: ATTEND Nurse Practitioner | DX: J02.9 Acute pharyngitis, unspecified (principal); R09.81 Nasal congestion; M79.10 Myalgia, unspecified site; Z20.822 Contact with and (suspected) exposure to COVID-19 ==

== ENCOUNTER → 2020-10-08 | Outpatient (CLI) | payer BC, OTHER | LOC: RAD 12:50 | PROVIDERS: ATTEND Nurse Practitioner | DX: R07.9 Chest pain, unspecified (principal); R07.81 Pleurodynia; N63.32 Unspecified lump in axillary tail of the left breast; R59.0 Localized enlarged lymph nodes ==

== ENCOUNTER → 2020-10-24 | Outpatient (CLI) | payer BC, OTHER | LOC: CAT 08:29 | PROVIDERS: ATTEND Nurse Practitioner | DX: K76.0 Fatty (change of) liver, not elsewhere classified (principal); K57.30 Diverticulosis of large intestine without perforation or abscess without bleeding; N83.02 Follicular cyst of left ovary; N83.01 Follicular cyst of right ovary; R10.12 Left upper quadrant pain; R10.9 Unspecified abdominal pain ==

== ENCOUNTER → 2020-12-03 | Outpatient (CLI) | payer BC | LOC: CAT 09:55 | PROVIDERS: ATTEND Nurse Practitioner | DX: R10.31 Right lower quadrant pain (principal); R11.0 Nausea; J98.11 Atelectasis ==